=== PATIENT | female | born 1940 | race Caucasian/White ===

== ENCOUNTER → 2017-10-12 12:23 | Outpatient (CLI) | payer MEDICARE, SELFPAY ==
--- NOTE | 2017-10-12 | DI.MRI.S_ITS ---
PROCEDURE: MR KNEE RT WO CON INDICATIONS: PRIMARY OSTEOARTHRITIS OF RIGHT KNEE TECHNIQUE: Noncontrast sagittal PD fast spin echo and T2 fast spin echo with fat saturation, sagittal 3-D FLASH with fat saturation; coronal T1 spin echo and PD fast spin echo with fat saturation, and axial PD fast spin echo with fat saturation through the knee. COMPARISON: None. FINDINGS: Image quality: Excellent. Menisci: There is medial extrusion of the medial meniscus. Amorphous high signal intensity traverses the medial meniscal body, demonstrating superior and inferior articular surface extension. Lateral meniscus is intact. Cruciate ligaments: The anterior and posterior cruciate ligaments appear intact. Medial structures: The medial collateral ligament appears intact. The posterior oblique ligament, semimembranosus tendon insertions, oblique popliteal ligament, and meniscocapsular junction appear intact. Visualized portions of the pes anserinus tendons appear normal. Moderate T2 signal elevation at the tibial insertion site of the semimembranosus tendon. No abnormal bursal fluid. Lateral structures: The lateral collateral ligament, long and short heads of the biceps femoris tendon appear intact. The popliteus tendon appears normal; the popliteofibular ligament appears intact. The posterosuperior and anteroinferior popliteomeniscal fascicles appear intact. The arcuate and fabellofibular ligaments appear intact, on either side of the lateral inferior geniculate artery. Iliotibial band appears normal. Anterior structures: The quadriceps and patellar tendons appear intact. There is mild lateral patellar subluxation. No femoral trochlear dysplasia or ventral trochlear prominence. Mild edema in the superolateral aspect of the infrapatellar fat pad. Bones and cartilage: No displaced fracture. Moderate ill-defined T2 signal elevation within the weightbearing aspects of the medial femoral condyle and medial tibial plateau. Within the medial femoral condyle weightbearing aspect, there is a focal region of linear subchondral low T1 signal intensity measuring roughly 9 mm anteroposterior by 5 mm transverse. Within the mid/posterior weight-bearing aspect of the lateral femoral condyle, there is a linear subchondral region of low T1 signal intensity measuring 6 mm anteroposterior by 5 mm transverse. There is severe diffuse articular cartilage loss overlying the weightbearing aspects of the medial femoral condyle and medial tibial plateau. Moderate articular cartilage loss overlies the mid and inferior aspects of the lateral patellar facet. Joint space: There is a small knee joint effusion. No Siegel's cyst. Normal appearing synovial plicae are incidentally noted. IMPRESSION: 1. 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 Small regions of osteochondral injury could produce a similar appearance. There is moderate surrounding degenerative versus reactive marrow edema within the medial lateral femoral condyles, as well as the medial tibial plateau. 2. Medial meniscal tearing. 3. Small knee joint effusion. 4. 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 5. Partial-thickness tearing of the semimembranosus at the tibial insertion site. Dictated by: Zaire Frausto M.D. on 10/12/2017 at 13:38 Approved by: Zaire Frausto M.D. on 10/12/2017 at 13:59
== END ==
PROVIDERS: PCP Family Medicine; Visit Provider Orthopaedic Surgery
DX: M17.11 Unilateral primary osteoarthritis, right knee (principal); S83.241A Other tear of medial meniscus, current injury, right knee, initial encounter; M25.461 Effusion, right knee
CPT/HCPCS: 73721

== ENCOUNTER → 2017-12-23 13:24 | Outpatient (CLI) | payer MEDICARE, SELFPAY ==
[2017-12-23 13:35] LABS: Bacteria Urine None Seen
[2017-12-23 14:34] LABS: Appearance Urine UA CLEAR; Bilirubin Urine UA NEGATIVE (NEGATIVE); Color Urine UA YELLOW; Glucose Urine UA NEGATIVE (Normal); Ketones Urine UA NEGATIVE (NEGATIVE); Leukocyte Esterase Urine UA TRACE (NEGATIVE); Nitrite Urine UA Negative (Negative); Occult Blood Urine UA TRACE-LYSED (Negative); Protein Urine UA NEGATIVE (Negative); Urobilinogen Urine UA 0.2 E.U./dL (0.2)
[2017-12-23 14:36] LABS: Add Manual Diff / Slide Review NO; Basophils Percent Auto 0.6 % (0-2); Eosinophils Percent Auto 8.3 % (2-4); Hematocrit 39.9 % (36-46); Hemoglobin 13.4 g/dL (12.0-16.0); Lymphocytes Percent Auto 33.1 % (25-40); Mean Corpuscular HGB Conc 33.5 % (30-36); Mean Corpuscular Hemoglobin 31.4 PG (26-34); Mean Corpuscular Volume 93.6 fL (80-100); Monocytes Percent Auto 9.9 % (3-14); Neutrophils Absolute Auto 4000 /uL (3000-5900); Neutrophils Percent Auto 48.1 % (50-75); Platelet Count 274 X10^3/uL (150-400); Red Blood Cell Count 4.26 X10^6/uL (4.0-5.2); Red Cell Distribution Width 12.9 % (11.6-14.8); White Blood Cell Count 8.3 X10^3/uL (4.5-11.0)
[2017-12-23 14:51] LABS: Hemoglobin A1C% w Est Avg Glu 5.6 % (4.0-6.0)
[2017-12-23 14:52] LABS: RBC Urine 1-5/HPF (0-5/HPF)
[2017-12-23 14:53] LABS: Culture Indicated Urine Specimen Cultured; Renal Epithelial Cells Urine 0-1/HPF; Squamous Epithelial Cell Urine 1-5 /HPF; Transitional Epi Cells Urine 0-1/HPF (0-5/HPF); WBC Urine 1-5/HPF (0-5/HPF)
[2017-12-23 14:56] LABS: BUN Creatinine Ratio 18.6 (6-22); Blood Urea Nitrogen 26 mg/dL (7-17); Calcium 9.7 mg/dL (8.4-10.2); Carbon Dioxide 28 mmol/L (22-32); Chloride 104 mmol/L (98-107); Estimated Glomerular Filt Rate 36.6 mL/min (>60); Glucose 129 mg/dL (80-110); HEMOLYSIS < 15 (0-50); Potassium 4.5 mmol/L (3.4-5.1); Sodium 145 mmol/L (137-145)
== END ==
PROVIDERS: PCP Internal Medicine; Visit Provider Orthopaedic Surgery
DX: Z01.818 Encounter for other preprocedural examination (principal); Z01.812 Encounter for preprocedural laboratory examination; N39.9 Disorder of urinary system, unspecified; R73.09 Other abnormal glucose
CPT/HCPCS: 36415; 80048; 81001; 83036; 85025; 87086; 93005

== ENCOUNTER 2018-01-26 08:10 | Day surgery (SDC) | payer MEDICARE, SELFPAY ==
[2018-01-12 12:59] VITALS: BMI 37.8
[2018-01-26] VITALS (14 sets, daily range): BP systolic 119–151; BP diastolic 50–89; PULSE 57–71; RESP 10–18; TEMP 35.7–36.9; O2SAT 94–100; BMI 37.8; BMI 39.2
[2018-01-26] MEDS: ACETAMINOPHEN 325 MG TABLET 975 MG PO ×3 (09:20→21:00)
[2018-01-26] MEDS: PREGABALIN 75 MG CAPSULE PO (09:20)
[2018-01-26] MEDS: CELECOXIB 200 MG CAPSULE PO (09:20)
[2018-01-26] MEDS: VANCOMYCIN 1,000 MG/200 ML FROZ.PIGGY 200 MG IV (09:21)
[2018-01-26] MEDS: LACTATED RINGERS 1,000 ML 42 ML IV (10:30)
--- NOTE | 2018-01-26 10:42 | PM.PREOP ---
Pre-operative Note Interval Note Pre-op Check: Yes History & Physical Reviewed by Physician and Yes Exam Performed Changes: No
--- NOTE | 2018-01-26 10:44 | PM.OP.1 ---
Operative Date/Time/Diagnoses Date of procedure: 01/26/18 Time of procedure: 10:56 Pre-op diagnosis: right knee OA Post-op diagnosis: same Procedure & Clinicians Procedure: Right total knee arthroplasty Same procedure as scheduled: Yes Indications: The patient has had progressively worsening right knee pain with radiographic changes consistent with arthritis. Non-operative management has failed and the patient has requested total knee replacement. The risks, benefits and alternatives to surgery were discussed with the patient prior to proceeding. Risks discussed included, but were not limited to, failure to relieve pain, stiffness, infection, nerve damage, deep venous thrombosis, pulmonary embolism, stroke, coma, heart attack, permanent paralysis and , as well as the potential need for eventual revision of the prosthetic. Surgeon: Kay Payne Debarker Operator: Oscar Quiñonze Anesthesia Type: Spinal, Sedation and Peripheral nerve block Operative Notes Findings: Severe right hip osteoarthritis, good stability Closure Type: primary Specimen(s): none sent Implants & Drains: Payne and Nephkumar Cabrera BCS2 4 FEMUR, 2 tibia, 35 mm patella,+10 poly Applied: drain(s) Estimated Blood Loss (mL): 250 Blood products transfused: none Tourniquet time (min): 63 Procedure in detail: The patient was seen in the pre-operative area, where the patient identified the right knee as the operative site and this was marked with my initials. The patient received pre-operative antibiotics, and was taken to the operating room and placed on the operative table in the supine position. After satisfactory anesthesia, a full fashioned garment knitter out was performed. The right leg was encircled with a tourniquet about the proximal thigh, and the leg was prepared from the toes to the tourniquet with ChloroPrep in the usual fashion and draped through sterile drapes. The leg was elevated and exsanguinated with Eschmark bandage and the tourniquet inflated to [250] mmHg pressure. The knee was approached through an approximately 18 cm incision centered over the patella and carried into the knee through a medial parapatellar arthrotomy. A portion of the medial and lateral meniscus was resected. Soft tissue was carefully mobilized around the patella the patella was measured with a caliper. Bone was resected from the patella and the patellar height was reconstituted with up an appropriate sized patellar component. A cover was then placed on the patella. A small amount of additional medial and lateral meniscus was resected. The visionare guide fit well to the distal femur. It looked like an appropriate distal femoral cut and the cut was made without difficulty. The rotation was assessed and the appropriate size femoral guide was placed on the distal femur and finishing cuts were made. There is no evidence of notching. The anterior, posterior and chamfer cuts were then made. The posterior osteophytes and soft tissues were then removed. The posterior capsule was injected with part of a mixture of 60 ml 0.25% Marcaine mixed with 20 ml Exparel for post operative pain control. The remainder of this mixture was injected into the capsule and subcutaneous tissues during cement curing. The tibia was prepared and the visionaire guide fit well to the distal tibia. The rotation was assessed. The patient was placed in extension residual medial and lateral meniscus as well as any residual bone was carefully resected. [No] additional tibia was resected. Hemostasis was achieved especially posteriorly. Additional local was injected into the posterior capsule. The extension gap was assessed and additional releases for gap balancing were performed as necessary. It was checked with the gap epitaxial reactor technician. The femoral component was trial was placed and the notch was finished. Trial tibial and femoral components were then placed and the knee placed through a range of motion. Range of motion was [0-130], with good stability throughout the range. The trials were then removed, and the tibia was finished. The bone was prepared with pulsatile lavage, and dried with a sponge. Cement was applied and the final prosthetics placed. Excess cement was removed during and after cement curing. A brief Betadine soak was performed. After confirming there was no extruded cement posteriorly, the final tibial insert was placed. The knee was copiously irrigated and the tourniquet deflated. Hemostasis was obtained with the bovie. A drain was placed and brought out superolaterally. The capsule was closed with interrupted # 1 poly suture. The subcutaneous layer was closed with barbed sutures, and the skin with a running 3-0 V-Lock suture and Surgical glue. An Aquacel Ag dressing was applied and the patient was taken to recovery having tolerated the procedure well. Complications: none Condition: stable Disposition: Acute Care Plan for aftercare: The patient will be maintained on a standard total knee replacement protocol with weight bearing as tolerated. The patient will receive aspirin and sequential compression devices for DVT prophylaxis. The patient will be discharged home when safe for the home environment.
--- NOTE | 2018-01-26 10:45 | DI.RAD.S_ITS ---
PROCEDURE: XR KNEE RT 1TO2V INDICATIONS: post op, total right knee arthroplasty. TECHNIQUE: 2 view(s) of the knee acquired. COMPARISON: [facility] [place] [facility] SAYRA Plasencia, XR BONE LENGTH SCANOGRAM, 10/12/2017, 13:34. FINDINGS: Bones: Patient is status post knee joint arthroplasty. Hardware components are in expected positions. Visualized bony structures are intact. Soft tissues: Overlying postoperative changes are noted. Expected post surgical changes within the overlying soft tissues are present with areas of soft tissue air, edema, and fluid. A surgical drainage catheter seen overlying the superior aspect of the anterior knee. No unexpected radiopaque foreign bodies are identified. IMPRESSION: Expected posterior to changes related to a total right knee arthroplasty. Dictated by: Bennie Banuelos M.D. on 01/26/2018 at 13:29 Approved by: Bennie Banuelos M.D. on 01/26/2018 at 13:30
[2018-01-26] MEDS: MIDAZOLAM 2 MG/2 ML VIAL IV (10:46)
[2018-01-26] MEDS: fentaNYL 100 MCG/2 ML INJ 50 MCG IV (10:47)
--- NOTE | 2018-01-26 10:52 | SUR.OPER ---
Supine on padded OR bed. Pillow under head, arms secured on padded armboards <90 degree abduction. Safety belt across torso. Non-operative leg secured with tape over blanket over lower leg. Operative leg secured in DeMayo/Bennett positioner. Foam padded brace at thigh of operative leg.
--- NOTE | 2018-01-26 11:02 | SUR.PREOP ---
Block start time 1052[] . Monitoring initiated and maintained throughout procedure. Oxygen and medications given per anesthesiologist instructions. Patient remained stable throughout procedure, no adverse reactions noted. Block end time [1100].
[2018-01-26] MEDS: CEFAZOLIN 2 GM/100 ML FROZ.PIGGY IV ×2 (11:05→19:07)
[2018-01-26] MEDS: BUPIVACAINE 0.25% W/ EPI VIAL 60 ML INJ (11:45)
[2018-01-26] MEDS: BUPIVACAINE LIPOSOME 266 MG/20 ML VIAL INJ (11:46)
--- NOTE | 2018-01-26 13:11 | PC.NURSE ---
Day shift: Pt not on AC unit at this time.
--- NOTE | 2018-01-26 14:20 | PC.NURSE ---
Admit Pt arrived to floor 1400, oriented to room and POC, IVF started. Hemovac clamped, call to PACU about time to unclamp, no answer. Pt denies pain. No fall hx, Reviewed allergies with Pt. Spo2 93% RA, enc DB & C while awake. SCDs in place.
[2018-01-26] MEDS: LACTATED RINGERS 1,000 ML 125 ML IV ×2 (14:49→22:52)
[2018-01-26] MEDS: OXYCODONE IR 5 MG TABLET PO ×2 (17:25→21:01)
--- NOTE | 2018-01-26 17:41 | PT.IIE ---
Current Diagnoses Unilateral primary osteoarthritis, right knee (01/26/18) Surgery Performed Operation Date: 01/26/18 10:45 Actual Procedures p Total Knee Arthroplasty(Right) - Kay Payne MD Surgical History (Last Updated 01/12/18 @ 14:00 by Lexii Aquino, RN) Hx of tonsillectomy (Acute) Status post bilateral cataract extraction (Acute) Status post biopsy of kidney (Acute) Medical History (Last Reviewed 01/26/18 @ 17:27 by Manoj Sandhu, PT, [place]) Arthritis (Acute) Easy bruisability (Acute) GERD (gastroesophageal reflux disease) (Acute) Glaucoma (Acute) Hyperglycemia, drug-induced (Acute) Kidney failure (Acute) Physical Therapy Inpatient Evaluation/Re-Eval M1 PT/OT-IP Prior Functional Status Start: 01/26/18 17:27 Freq: NEEDED Status: Active Protocol: Document 01/26/18 17:27 EA (Rec: 01/26/18 17:41 EA [id number]) Medical Review Prior Functional Status Medical History Reviewed Yes Diet/Fluid Consistency Regular Communication Normal Mobility and Gait bale to ambulate with unlimited distance with pain to right knee with no use of walking device. Activities of Daily Living and IADL's Indep in all ADL's Social History Household Members spouse Living Arrangements House Number of Floors (Floors) Two Floors Number of Stairs To Enter/Railing? 3 step to get in with left rails going up Home Environment Standard Height Toilet Home Equipment Front Wheel Walker Straight Cane Employment Status Retired M2 PT-IP Current Condition Start: 01/26/18 17:27 Freq: NEEDED Status: Active Protocol: Document 01/26/18 17:27 EA (Rec: 01/26/18 17:41 EA [id number]) Physical Therapy Current Condition Current Condition Evaluation Date 01/26/18 Onset Date s/p R TKA Weight Bearing Status Weight Bearing Status Weight Bear as Tolerated M3 PT-IP Subjective Start: 01/26/18 17:27 Freq: NEEDED Status: Active Protocol: Document 01/26/18 17:27 EA (Rec: 01/26/18 17:41 EA [id number]) Subjective Physical Therapy Visit Type Type Initial Evaluation Visit Start Time 16:50 Visit Stop Time 17:30 Total Visit Minutes 40 Physical Therapy Visit Comments Patient Comments Patient would like to use bed side commode and mobilize Patient Goals Patient would like to be indep in all transfers and mobility prior to discharge Therapy Pain Assessment Pain When Pain Assessed At Rest Pain Present Pain Present Pain Reported Location Right Knee Intensity 2 Scale Used Numeric (1 - 10) Description Acute M4 PT-IP Mobility and Gait Start: 01/26/18 17:27 Freq: NEEDED Status: Active Protocol: Document 01/26/18 17:27 EA (Rec: 01/26/18 17:41 EA [id number]) PT-Bed Mobility Assessment Supine to Sit Supine to Sit Standby Assistance Sit to Supine Sit to Supine Standby Assistance Scooting Scooting to Edge of Bed Minimal Assistance PT-Transfer Assessment Sit to and From Stand Sit to and from Stand Minimal Assistance Equipment Transfer Assistive Device Gait Belt Front Wheeled Walker Transfers Transfer Destination Bed Chair Bedside Commode Transfer Technique Stepping transfers Transfer Ability Level of Assist Contact Guard Assistance Comments Mobility Comments Patient requires cues during sit to stand to use arm push in bed or chair Gait Assessment Gait Gait Assistance Required: Contact Guard Assist Distance (Feet) 6 Able to Maintain Weight Bearing Status Yes During Gait Assistive Devices Assistive Device Front Wheeled Walker Gait Deviations General Gait Pattern Antalgic Factors Limiting Gait Function Factors Limiting Gait Function Decreased Sensation Decreased Strength Pain PT-Balance Assessment Sitting Balance and Reactions Static Sitting Balance Ability Normal Dynamic Sitting Balance Ability Good Standing Balance and Reactions Static Standing Balance Ability Good Dynamic Standing Balance Ability Fair M5 PT-IP Objective Assessments Start: 01/26/18 17:27 Freq: NEEDED Status: Active Protocol: Document 01/26/18 17:27 EA (Rec: 01/26/18 17:41 EA [id number]) Orientation Orientation/Cognition Level of Alertness Alert Orientation Name Age Month Date Year Day of Week Place Language Function Ability No Deficits Noted Safety Awareness Understands Safety Issues Memory Description No Deficits Noted Gross Range of Motion Upper Extremity ROM Assessment Within Functional Limits Lower Extremity ROM Assessment Right Impaired Impairments Not assessed but WFL with spontaneous movement Strength Upper Extremity Strength Assessment Within Functional Limits Lower Extremity Strength Assessment Right Impaired Knee with at least 3/5 during spontaneous movement Coordination Assessment Gross Coordination Gross Coordination WNL Assessment Finger to Nose Test Normal Performance Pronation/Supination Test Normal Performance Sensation Assessment Sensation Gross Sensation WNL Light Touch Intact Proprioception (Position) Intact M6 PT-IP Treatment Start: 01/26/18 17:27 Freq: NEEDED Status: Active Protocol: Document 01/26/18 17:27 EA (Rec: 01/26/18 17:41 EA [id number]) Physical Therapy Treatment Exercises Exercises Ankle Pumps Quad Sets Heel Slides Straight Leg Raises Short Arc Quads Passive Knee Extension Hang Seated Knee Flexion/Extension Education Education Provided Precautions Weight Bearing Status Post-Op Packet Safety M7 PT-IP Assessment and Plan Start: 01/26/18 17:27 Freq: NEEDED Status: Active Protocol: Document 01/26/18 17:27 EA (Rec: 01/26/18 17:41 EA [id number]) PT Summary Assessment and Plan Potential Rehabilitation Potential Good Status of Condition at Evaluation Stable Summary Impairments Pain ROM Strength Balance Bed Mobility Transfers Gait Activity Tolerance Assessment Summary Pt exhibits difficulty with transfers and standing mobility due to decreased activity tolerance, pain to right knee, weakness and slight dynamic standing balance issues. Patient requires assistance to all transfers and mobility at this time for safety. Patient would benefit with skilled PT to reach functional independence goals prior to discharge. Pt demonstrates good potential for recovery. Goals Bed Mobility Goal Independent Transfer Goal Independent Gait Goal Independent Gait Distance 50 ft Other Goals stairs with rails to left x 3 steps Days to Meet Goals 2 Frequency of Treatment Frequency Of Treatment Twice a Day Treatment Plan Physical Therapy Treatment Plan Bed Mobility Training Transfer Training Gait Training Therapeutic Exercise Balance Retraining Post Op Education Discharge Planning Recommendations To Nursing Amount of Assist Needed 1 Person Assist Discharge Recommendations PT Discharge Recommendations Home with 11/10 Assist Other Discharge Recommendations Out patient PT
[2018-01-26] MEDS: IBUPROFEN 600 MG TABLET PO (19:04)
[2018-01-26] MEDS: TRAVOPROST OPHTH DROPS 1 DROPS EYE-BOTH (20:59)
[2018-01-26] MEDS: DORZOLAMIDE 2% OPHTH 10 ML 1 DROPS EYE-BOTH (20:59)
[2018-01-26] MEDS: TIMOLOL 0.5% OPHTH 1 DROPS EYE-BOTH (21:00)
[2018-01-26] MEDS: METOPROLOL IR 50 MG TABLET PO (21:01)
[2018-01-26] MEDS: DOCUSATE 100 MG CAPSULE PO (21:01)
[2018-01-26] MEDS: ASPIRIN EC 81 MG TABLET PO (21:01)
[2018-01-27] MEDS: OXYCODONE IR 5 MG TABLET PO ×2 (00:54→12:43)
[2018-01-27 01:10] VITALS: O2SAT 99
[2018-01-27 01:11] VITALS: BP 117/64; PULSE 64; RESP 18; TEMP 36.3
[2018-01-27] MEDS: CEFAZOLIN 2 GM/100 ML FROZ.PIGGY IV (03:09)
[2018-01-27 04:09] VITALS: BP 155/68; PULSE 69
--- NOTE | 2018-01-27 04:18 | PC.NURSE ---
pt had a syncopal episode 0400 after getting up to the BR. She was sitting on her bed and ready to lay back down and suddenly loss consciousness for about 5 sec, she hit the back of her head on the bed rail. She does not remember hitting her head. does not complain of any pain to her head. BP was 155/68 P: 69. IVF infusing. She had an emesis of 100cc. HV intact. pain controlled w/5mg tab percolone. call light in reach, bed alarm active. notified refractive surgeon doc. no new orders.
[2018-01-27] MEDS: ONDANSETRON 4 MG/2 ML INJ IV (04:44)
[2018-01-27] MEDS: IBUPROFEN 600 MG TABLET PO ×2 (04:48→12:39)
[2018-01-27] MEDS: PANTOPRAZOLE 20 MG TABLET PO (05:41)
[2018-01-27 06:14] VITALS: BP 124/58; PULSE 63; RESP 18; TEMP 36.7; O2SAT 96
[2018-01-27] MEDS: LACTATED RINGERS 1,000 ML 125 ML IV (07:35)
[2018-01-27 07:37] LABS: Hematocrit 33.4 % (36-46); Hemoglobin 11.2 g/dL (12.0-16.0)
--- NOTE | 2018-01-27 08:32 | PM.DS.1 ---
History of Present Illness Date Patient Seen: 01/27/18 Time Patient Seen: 08:32 Chief complaint: [id number] Narrative: Hospital day 2, postop day 1 following right total knee arthroplasty by Dr. Payne. Patient remained stable. She did have episode of syncope at 0400 this morning after getting up to the bathroom and while she was sitting on the edge of the bed. She did fall backwards hitting her head on the plastic side rail. Brief LOC. Did have vomiting 3 times after that but none since then. Denies any dizziness, headache, numbness. Pain control with oxycodone. Patient states she does have upset stomach when taking medications and has vomited after taking vitamins. H&H 11.2/33.4. Discharge Providers Date of admission: 01/26/18 08:10 Primary care physician: Gerald Hines Consults: 01/12/18 13:57 Consult to Pastoral Services Routine Comment: RT TKA 01/26/18 01/26/18 07:46 Consult to Anesthesiology Routine Comment: Consulting Provider: Anesthesiologist Reason for consultation: Regional block for post operative pain control 01/26/18 14:09 Consult to Discharge Planning Routine Comment: Consult to Physical Therapy Evaluate & Treat Comment: Physician Instructions: postop TKA protocol Consult to Respiratory Therapy Evaluate & Treat Comment: Physician Instructions: Evaluate and treat 01/26/18 15:13 Consult to Pastoral Services Routine Comment: requested pastoral consult Discharge provider: Mario Long PA-C Discharge Date: 01/27/18 Summary Discharge Diagnosis: Status post right total knee arthroplasty Hospital Course: See above-noted note. Status at Discharge Overall status at discharge: patient is progressing back to baseline Time Spent with Patient Less than 30 minutes Exam Vital Signs (past 8 hours): - 01/27/18 01:10 01/27/18 01:11 01/27/18 04:09 Temperature 97.3 F L Pulse Rate 64 69 Respiratory Rate 18 Blood Pressure 117/64 155/68 H Pulse Oximetry 99 01/27/18 06:14 Temperature 98.0 F Pulse Rate 63 Respiratory Rate 18 Blood Pressure 124/58 L Pulse Oximetry 96 Oxygen Delivery Method Room Air Oxygen Flow Rate 0 Narrative Exam Narrative: Alert, oriented no acute distress resting in bed. Legs. Oli wrap an Aquacel dressing to right knee is dry without drainage or inflammation. No calf pain or swelling. Pulses symmetrical. Patient able fire her quad on the right. Objective Labs Result Diagrams: 01/27/18 07:17 Labs: Laboratory Results - last 24 hr 01/27/18 07:17 Hgb 11.2 L Hct 33.4 L Discharge Plan Discharge Plan Patient Disposition: Home Discharge comment: Patient is a [facility] patient. She does have pain medication at home. Discharged home after cleared by physical therapy today. Discharge Med Rec/Prescriptions Prescriptions: Continue losartan 50 mg Tablet 25 mg PO DAILY RF: 0 furosemide 40 mg Tablet 40 mg PO DAILY RF: 0 cetirizine [Aller-Tim] 10 mg Tablet 10 mg PO DAILY RF: 0 travoprost [Travatan Z] 0.004 % Drops 1 drp EYE-BOTH BEDTIME RF: 0 aspirin 81 mg Tablet,Delayed Release (Dr/Ec) 81 mg PO DAILY RF: 0 metoprolol tartrate 50 mg Tablet 50 mg PO BID RF: 0 omeprazole 20 mg Capsule,Delayed Release(Dr/Ec) 20 mg PO DAILY RF: 0 timolol maleate 0.5 % Drops 1 drp EYE-BOTH BID RF: 0 dorzolamide 2 % Drops 1 drp EYE-BOTH BID RF: 0 Provider Discharge Instructions Diet: Diet as Tolerated Activity: Ambulate as tolerated. Begin physical therapy for range of motion of knee. Skin/Wound/Dressing Care Report to your healthcare provider any signs of infection, such as:: chills, fever, night sweats, increased pain and unusual drainage Dressing: Keep Aquacel dressing in place until postop visit. Visit Report/Discharge Packet Instructions: DI for Knee Replacement Discharge Data Primary Care Provider: Gerald Hines Attending Provider: Kay Payne Admit Date/Time: 01/26/18 08:10 Quality VTE Deep Vein Thrombosis/Pulmonary Embolism Present on Admission: No
--- NOTE | 2018-01-27 08:35 | PT.IPTN ---
Current Diagnoses Unilateral primary osteoarthritis, right knee (01/26/18) Surgery Performed Operation Date: 01/26/18 10:45 Actual Procedures p Total Knee Arthroplasty(Right) - Kay Payne MD Physical Therapy Treatment Note M2 PT-IP Current Condition Start: 01/26/18 17:27 Freq: NEEDED Status: Active Protocol: Document 01/26/18 17:27 EA (Rec: 01/26/18 17:41 EA [id number]) Physical Therapy Current Condition Current Condition Evaluation Date 01/26/18 Onset Date s/p R TKA Weight Bearing Status Weight Bearing Status Weight Bear as Tolerated M3 PT-IP Subjective Start: 01/26/18 17:27 Freq: NEEDED Status: Active Protocol: Document 01/27/18 08:35 AB (Rec: 01/27/18 09:46 AB [id number]) Subjective Physical Therapy Visit Type Type Treatment Note Visit Start Time 08:35 Visit Stop Time 09:35 Total Visit Minutes 60 Number of DYNAMITE PACKING MACHINE FEEDER Visits 60 Physical Therapy Visit Comments Patient Comments pt requested to use the toilet Therapy Pain Assessment Pain When Pain Assessed During Mobility Pain Present Pain Present Pain Reported Location Right Knee Intensity 6 Scale Used Numeric (1 - 10) Pain Management Techniques Apply Cold Re-positioning Timing of Activity with Medications M4 PT-IP Mobility and Gait Start: 01/26/18 17:27 Freq: NEEDED Status: Active Protocol: Document 01/27/18 08:35 AB (Rec: 01/27/18 09:46 AB [id number]) PT-Bed Mobility Assessment Supine to Sit Supine to Sit Standby Assistance PT-Transfer Assessment Sit to and From Stand Sit to and from Stand Contact Guard Assistance Equipment Transfer Assistive Device Gait Belt Front Wheeled Walker Orthotic/Prosthetic Devices or Brace: No Transfers Transfer Destination Toilet Transfer Technique pt ambulated to the toilet using FWW Transfer Ability Level of Assist Contact Guard Assistance Comments Mobility Comments nurse stated that pt has orthostatic episode last night . BP monitored. BP in supine prior to mobilization: 125/60 . pt completed supinet to sit SBA. BP in sittin/69. pt completed sit to stand CGA with cues for techniques. pt performed 2 reps. Pt without c/o lightheadedness/ nausea. pt ambulated to the toilet using FWW CGA. required CGA to min A for sit to stand from the toilet using grab bars. pt ambulated towards the sink using FWW CGA and was able to maintain standing SBA to CGA while completing handwashing. Pt ambulated to the chair. c/o slight nausea. BP checked: 130/59. pt agreed to do further ambulation. Pt required 2 attempts for sit to stand and required cues for technique to complete and CGA. Pt ambulated in room ~ 25 ft and unable to ambulate further due to c/o nausea. pt agreed to stay up on chair. BP checked 125/58. positioned pt on chair. educated on HEP , goals and equipement needs. recommending FWW at this time for safety. pt refused stair climbing this morning but agreed to do it in afternoon session. BP checked again: 125/56. ice pack provided. call light and table placed within reach. Gait Assessment Gait Gait Assistance Required: Contact Guard Assist Distance (Feet) 25 Able to Maintain Weight Bearing Status Yes During Gait Assistive Devices Assistive Device Gait Belt Front Wheeled Walker Orthotic/Prosthetic Devices or Brace: No Gait Deviations General Gait Pattern Antalgic Decreased Stride Length Decreased Feet Clearance Factors Limiting Gait Function Factors Limiting Gait Function Decreased Activity Tolerance Decreased Strength Limited Range of Motion Pain Poor Balance M5 PT-IP Objective Assessments Start: 01/26/18 17:27 Freq: NEEDED Status: Active Protocol: Document 01/26/18 17:27 EA (Rec: 01/26/18 17:41 EA [id number]) Orientation Orientation/Cognition Level of Alertness Alert Orientation Name Age Month Date Year Day of Week Place Language Function Ability No Deficits Noted Safety Awareness Understands Safety Issues Memory Description No Deficits Noted Gross Range of Motion Upper Extremity ROM Assessment Within Functional Limits Lower Extremity ROM Assessment Right Impaired Impairments Not assessed but WFL with spontaneous movement Strength Upper Extremity Strength Assessment Within Functional Limits Lower Extremity Strength Assessment Right Impaired Knee with at least 3/5 during spontaneus movement Coordination Assessment Gross Coordination Gross Coordination WNL Assessment Finger to Nose Test Normal Performance Pronation/Supination Test Normal Performance Sensation Assessment Sensation Gross Sensation WNL Light Touch Intact Proprioception (Position) Intact M6 PT-IP Treatment Start: 01/26/18 17:27 Freq: NEEDED Status: Active Protocol: Document 01/27/18 08:35 AB (Rec: 01/27/18 09:46 AB [id number]) Physical Therapy Treatment Exercises Exercises Heel Slides Education Education Provided Precautions Weight Bearing Status Post-Op Packet Safety M7 PT-IP Assessment and Plan Start: 01/26/18 17:27 Freq: NEEDED Status: Active Protocol: Document 01/27/18 08:35 AB (Rec: 01/27/18 09:46 AB [id number]) PT Summary Assessment and Plan Potential Rehabilitation Potential Good Summary Impairments Pain ROM Strength Balance Bed Mobility Transfers Gait Activity Tolerance Assessment Summary pt requires SBA to CGA with mobility but unable to tolerate much due to c/o nausea. pt plans to go home with spouse to assist her. stair climbing will be conducted prior to d/c. pt may go home when safe and medically stable. Goals Bed Mobility Goal Independent Transfer Goal Independent Gait Goal Independent Gait Distance 50 ft Other Goals stairs with rails to left x 3 steps Days to Meet Goals 2 Frequency of Treatment Frequency Of Treatment Twice a Day Treatment Plan Physical Therapy Treatment Plan Bed Mobility Training Transfer Training Gait Training Therapeutic Exercise Balance Retraining Post Op Education Discharge Planning Recommendations To Nursing Amount of Assist Needed 1 Person Assist Discharge Recommendations PT Discharge Recommendations Home with 11/10 Assist Other Discharge Recommendations Out patient PT
[2018-01-27] MEDS: ACETAMINOPHEN 325 MG TABLET 975 MG PO ×2 (08:44→14:59)
[2018-01-27] MEDS: ONDANSETRON 4 MG ODT PO (09:48)
[2018-01-27] MEDS: TIMOLOL 0.5% OPHTH 1 DROPS EYE-BOTH (09:49)
[2018-01-27] MEDS: DORZOLAMIDE 2% OPHTH 10 ML 1 DROPS EYE-BOTH (09:50)
[2018-01-27] MEDS: LOSARTAN 25 MG TABLET PO (09:52)
[2018-01-27] MEDS: ASPIRIN EC 81 MG TABLET PO (09:52)
[2018-01-27] MEDS: DOCUSATE 100 MG CAPSULE PO (09:52)
[2018-01-27] MEDS: METOPROLOL IR 50 MG TABLET PO (09:52)
[2018-01-27] MEDS: FUROSEMIDE 40 MG TABLET PO (09:52)
--- NOTE | 2018-01-27 11:58 | CM.DANOTE ---
Discharge Planning/Care Management DCP/Discharge Patient to discharge home today following PT clearance. Met with patient and daughter: notified of CM team role and family understood. Patient is agreeable to discharge but stated she did not get to work with PT as much due to vomiting. She understands she needs to work with PT successfully in order to have a safe discharge. Plan: Patient to discharge home when medically stable with supportive spouse and family. CM Discharge Assessment Start: 01/27/18 11:57 Freq: Status: Active Protocol: Document 01/27/18 11:57 (Rec: 01/27/18 11:58 [id number]) Discharge Planning Assessment Assigned Manager Deli LAMINE Gamboa Advance Directives? Yes Advance Directives on File No History Provided By Patient Family Member Medical Record Has Patient been admitted in last 30 No days? Prior Living Arrangements House Household Members spouse Type of transporation used prior to Drives own vehicle admit Independent with ADL's Yes Is patient alert and oriented? Yes Caregiver for Another No Barriers to Discharge No Discharge Plan Home Referrals Initiated None needed Whiteboard Updated in Patient Room with Yes name and ext. # of Manager Deli Review Status In Process Please Provide Date Initial DC 01/27/18 Assessment Was Performed Next Review Type Continued Stay Review Pre-Anesthesia Assessment Start: 01/12/18 12:59 Freq: Status: Active Protocol: Document 01/12/18 12:59 CAB (Rec: 01/12/18 13:39 CAB [id number]) Pre-Anesthesia Assessment Patient Also Known As (LYNDSAY) Bebe Patient Information Reviewed Via Phone Assessment Assessment Completed With Patient Lab Results EKG Comment Labs/EKG at 12/23/17, reviewed GFR/Creatinine w/Dr. Mars. Primary Care Provider Gerald Hines Seen Specialist in Last 12 Months Yes Specialist Seen Addictions Therapist Orthopedist Comment Nephrology note 11/15/17 to med records to be scanned Primary Language Malagasy Buyer Planner Required No Height 162.56 cm Weight 99.79 kg Body Mass Index (BMI) 37.8 Hearing Ability Normal Visual Assist Magnifying Glass Dentition Type Teeth, Natural Present Barriers to Learning None Hx Anesthesia Reactions Yes: Post-op vomiting Hx Family Anesthesia Reaction No Hx Malignant Hyperthermia No Hx Blood Transfusions No Anesthesia Review Requested No Tobacco Dipper No alcohol intake never Smoking Status Never smoker Substance Use Type does not use Pain Present Pain Reported Musculoskeletal Symptoms Abnormal Gait Difficulty Walking Joint Pain History of Falling (Recent or History of No ) Patient is completely paralyzed or No completely immobile Mental Status Oriented to own ability Is patient on oxygen? No Does patient have GALICIA/SOB No Hx Sleep Apnea No Suspected Sleep Apnea No Currently Taking a Beta Luca Yes: Metoprolol Can You Climb a Flight of Stairs Without Yes SOB Hx Chest Pain No Hx SOB No Hx Syncope or Dizziness No Anti-Coagulant Therapy No Has a C Java Developer No Cardiac Testing No Hx Pacemaker/ICD No Pacemaker Rep Required? No Cardiac Clearance Received Not Applicable Diet Type At Home Regular dysphagia No Bladder Pattern Incontinent, Stress Urgency Urinary Catheter Present No Hx Urinary Self Catheterization No Diabetes Yes Patient No Lactating No Hx Drug Resistant Organism No Presence of External or Internal Medical No Devices Have you traveled outside the [facility] in the last 30 days? Marital Status Lives With spouse Prior Living Arrangements House Number of Floors (Floors) Two Floors Number of Stairs To Enter/Railing? 3 stairs, railing Support System Child/Children Spouse Does the Patient Have Assistance After Yes Surgery Patient Discharge Plan Description Return Home Comment Pt advised same day or 1 day length of stay per surgeon's office Feels Safe in Current Environment Yes Been Physically Hurt or Threatened By a No Person in Current Environment Do you have thoughts of harming yourself None or others? Are you currently considering suicide? No Do you have a plan to hurt yourself or No Plan others? Do You Have Any Spiritual Beliefs That No May Affect Your HC Choices? Do You Have Any Cultural Practices That No May Affect Your HC Choices? Spiritual Referral In-House Warp Trucker Who Can We Speak to About Patient's Care Family, friends Identifying Code for Release of Patient Declines to issue Information Health Care Proxy/Next of Kin Robb () Health Care Proxy Phone Number Robb: [phone] cell:[phone] Emergency Contact Name Robb () Emergency Contact Phone Number Robb: [phone] cell: Advance Directives? Yes Advance Directives on File No Requested Patient Bring Advanced Yes Directives DOS PAC Instructions Do not shave/clip surgical site Durable medical equipment Medications to take/avoid Nasal antibiotic No ETOH/petroleum product on skin DOS NPO Post-op transportation Pre-surgical wash Sturdy shoes/comfortable clothes Do not bring valuables and remove jewelry
--- NOTE | 2018-01-27 13:09 | PC.NURSE ---
Day shift: Removed marisel-vac per MD orders. Pt tolerated it well. Approx 30ml serosang present. Site covered w/ 2x2 and tegaderm.
--- NOTE | 2018-01-27 13:15 | PT.IPTN ---
Current Diagnoses Unilateral primary osteoarthritis, right knee (01/26/18) Surgery Performed Operation Date: 01/26/18 10:45 Actual Procedures p Total Knee Arthroplasty(Right) - Kay Payne MD Physical Therapy Treatment Note M2 PT-IP Current Condition Start: 01/26/18 17:27 Freq: NEEDED Status: Active Protocol: Document 01/26/18 17:27 EA (Rec: 01/26/18 17:41 EA [id number]) Physical Therapy Current Condition Current Condition Evaluation Date 01/26/18 Onset Date s/p R TKA Weight Bearing Status Weight Bearing Status Weight Bear as Tolerated M3 PT-IP Subjective Start: 01/26/18 17:27 Freq: NEEDED Status: Active Protocol: Document 01/27/18 13:15 AB (Rec: 01/27/18 14:48 AB [id number]) Subjective Physical Therapy Visit Type Type Treatment Note Visit Start Time 13:15 Visit Stop Time 13:55 Total Visit Minutes 40 Number of PIPE FITTER SOFT COPPER Visits 0 Therapy Pain Assessment Pain When Pain Assessed During Mobility Pain Present Pain Present Pain Reported Location Right Knee Intensity 6 Scale Used Numeric (1 - 10) Description With Movement Pain Management Techniques Apply Cold Re-positioning Timing of Activity with Medications M4 PT-IP Mobility and Gait Start: 01/26/18 17:27 Freq: NEEDED Status: Active Protocol: Document 01/27/18 13:15 AB (Rec: 01/27/18 14:48 AB [id number]) PT-Bed Mobility Assessment Sit to Supine Sit to Supine Standby Assistance Scooting Scooting to Edge of Bed Standby Assistance PT-Transfer Assessment Sit to and From Stand Sit to and from Stand Standby Assistance Equipment Transfer Assistive Device Gait Belt Front Wheeled Walker Gait Assessment Gait Gait Assistance Required: Standby Assistance Distance (Feet) 75 Able to Maintain Weight Bearing Status Yes During Gait Assistive Devices Assistive Device Gait Belt Front Wheeled Walker Orthotic/Prosthetic Devices or Brace: No Gait Deviations General Gait Pattern Antalgic Decreased Stride Length Decreased Feet Clearance Factors Limiting Gait Function Factors Limiting Gait Function Decreased Activity Tolerance Decreased Strength Limited Range of Motion Pain Poor Balance Poor Safety Awareness Stair Climbing Assessment Evaluation Level of Assist On Stairs Contact Guard Assistance Devices Stair Climbing Assistive Devices Left Railing Technique/Endurance Stair Climbing Direction Ascend and Descend Stair Climbing Technique Step to Step Number of Steps Climbed 3 Query Text: Stair Climbing Set # Repetitions (reps) 2 Comments Stair Climbing Comments pt educated on up/down steps. completed up/down 3 steps using bilateral rails CGA and then completed again using L rail ascending with spouse assisting this time providing CGA to min A. caregiver educated provided to safely assist pt and caregiver demonstrated ability to assist pt safely. M5 PT-IP Objective Assessments Start: 01/26/18 17:27 Freq: NEEDED Status: Active Protocol: Document 01/26/18 17:27 EA (Rec: 01/26/18 17:41 EA [id number]) Orientation Orientation/Cognition Level of Alertness Alert Orientation Name Age Month Date Year Day of Week Place Language Function Ability No Deficits Noted Safety Awareness Understands Safety Issues Memory Description No Deficits Noted Gross Range of Motion Upper Extremity ROM Assessment Within Functional Limits Lower Extremity ROM Assessment Right Impaired Impairments Not assessed but WFL with spontaneous movement Strength Upper Extremity Strength Assessment Within Functional Limits Lower Extremity Strength Assessment Right Impaired Knee with at least 3/5 during spontaneus movement Coordination Assessment Gross Coordination Gross Coordination WNL Assessment Finger to Nose Test Normal Performance Pronation/Supination Test Normal Performance Sensation Assessment Sensation Gross Sensation WNL Light Touch Intact Proprioception (Position) Intact M6 PT-IP Treatment Start: 01/26/18 17:27 Freq: NEEDED Status: Active Protocol: Document 01/27/18 08:35 AB (Rec: 01/27/18 09:46 AB [id number]) Physical Therapy Treatment Exercises Exercises Heel Slides Education Education Provided Precautions Weight Bearing Status Post-Op Packet Safety M7 PT-IP Assessment and Plan Start: 01/26/18 17:27 Freq: NEEDED Status: Active Protocol: Document 01/27/18 13:15 AB (Rec: 01/27/18 14:48 AB [id number]) PT Summary Assessment and Plan Potential Rehabilitation Potential Good Summary Impairments Pain ROM Strength Balance Bed Mobility Transfers Gait Activity Tolerance Assessment Summary pt doing well with mobility and plans to go home today. caregiver training completed and spouse was able to assist pt safely. Goals Bed Mobility Goal Independent Transfer Goal Independent Gait Goal Independent Gait Distance 50 ft Other Goals stairs with rails to left x 3 steps Days to Meet Goals 2 Frequency of Treatment Frequency Of Treatment Twice a Day Treatment Plan Physical Therapy Treatment Plan Bed Mobility Training Transfer Training Gait Training Therapeutic Exercise Balance Retraining Post Op Education Discharge Planning Recommendations To Nursing Amount of Assist Needed 1 Person Assist Discharge Recommendations PT Discharge Recommendations Home with 24/ Assist Other Discharge Recommendations Out patient PT
--- NOTE | 2018-01-27 15:16 | PC.NURSE ---
Day shift: Pt left unit in WC w/ her family and this handbook writer. Paperwork signed and all questions answered. Pt has all personal belongings. Pt was given Tylenol PO for her ride home just prior to leaving the AC unit.
== END 2018-01-27 15:17 | disposition home or self-care (01) ==
LOC: AC 01-27 08:36 → OR 01-27 16:11
PROVIDERS: PCP Internal Medicine; Visit Provider Orthopaedic Surgery
PROC: 0SRC0JZ Replacement of Right Knee Joint with Synthetic Substitute, Open Approach (ICD-10-PCS; CPT 27447; principal; 2018-01-26 10:45)
DX: M17.11 Unilateral primary osteoarthritis, right knee (principal); G89.18 Other acute postprocedural pain; N17.9 Acute kidney failure, unspecified; Z99.2 Dependence on renal dialysis; I10 Essential (primary) hypertension; E11.9 Type 2 diabetes mellitus without complications; D64.9 Anemia, unspecified; E66.9 Obesity, unspecified; Z68.37 Body mass index [BMI] 37.0-37.9, adult
CPT/HCPCS: 27447; 36415; 64450; 73560; 85014; 85018; 94760; 97116; 97161; 97530; 97535; C1776; C9290; J0690; J2250; J2405; J2704; J3010; J3370

== ENCOUNTER 2023-03-25 10:30 | Day surgery (SDC) | payer MEDICARE, OTHER, SELFPAY ==
[2018-01-26 14:59] VITALS: BMI 39.2
[2023-03-15 09:51] VITALS: BMI 38.4
[2023-03-22 14:00] VITALS: BP 120/39; PULSE 61; RESP 16; TEMP 36.4; O2SAT 95
[2023-03-25] VITALS (12 sets, daily range): BP systolic 126–177; BP diastolic 47–92; PULSE 59–87; RESP 15–20; TEMP 35.7–36.7; O2SAT 92–100; BMI 38.4
[2023-03-25] MEDS: VANCOMYCIN 1,000 MG/200 ML PIGGYBACK 200 MG IV (13:17)
--- NOTE | 2023-03-25 13:18 | PM.PREOP ---
Pre-operative Note Interval Note History & Physical reviewed/Exam performed by Physician: Yes Changes to H&P: No
--- NOTE | 2023-03-25 13:18 | PM.OP.1 ---
Operative Date/Time/Diagnoses Date of procedure: 03/25/23 Time of procedure: 13:25 Pre-op diagnosis: Severe left knee OA Post-op diagnosis: same Procedure & Clinicians Procedure: Left total knee arthroplasty Same procedure as scheduled: Yes Indications: The patient has had progressively worsening left knee pain with radiographic changes consistent with arthritis. Non-operative management has failed and the patient has requested total knee replacement. The risks, benefits and alternatives to surgery were discussed with the patient prior to proceeding. Risks discussed included, but were not limited to, failure to relieve pain, stiffness, infection, nerve damage, deep venous thrombosis, pulmonary embolism, stroke, coma, heart attack, permanent paralysis and , as well as the potential need for eventual revision of the prosthetic. Surgeon: Kay Payne Muffler Hand: Brayan Julien Anesthesia Type: Peripheral nerve block Operative Notes Findings: Severe left knee osteoarthritis, adequate stability Closure Type: primary Specimen(s): none sent Prosthetic devices, grafts, tissues, transplants, or devices: [facility] 2 size 5 femur, size 3 tibia, 35 by 7.5mm patella, polyethylene 9 Estimated Blood Loss (mL): 250 Blood products transfused: none Tourniquet time (min): 79 Procedure in detail: The patient was seen in the pre-operative area, where the patient identified the right knee as the operative site and this was marked with my initials. The patient received pre-operative antibiotics, and was taken to the operating room and placed on the operative table in the supine position. After satisfactory anesthesia, a inspector timers out was performed. The right leg was encircled with a tourniquet about the proximal thigh, and the leg was prepared from the toes to the tourniquet with ChloroPrep in the usual fashion and draped through sterile drapes. The leg was elevated and exsanguinated with Eschmark bandage and the tourniquet inflated to [250] mmHg pressure. The knee was approached through an approximately 18 cm incision centered over the patella and carried into the knee through a medial parapatellar arthrotomy. A portion of the medial and lateral meniscus was resected. Soft tissue was carefully mobilized around the patella the patella was measured with a caliper. Bone was resected from the patella and the patellar height was reconstituted with up an appropriate sized patellar component. A cover was then placed on the patella. A small amount of additional medial and lateral meniscus was resected. The distal femur was cut at 5?. A [+2] cut was used. It looked like an appropriate distal femoral cut and the cut was made without difficulty. An extramedullary guide was used for the tibial cut. 10 mm was resected off the least affected side.The tibia was prepared. The rotation was assessed. The patient was placed in extension residual medial and lateral meniscus as well as any residual bone was carefully resected. [No] additional tibia was resected. Hemostasis was achieved especially posteriorly. Additional local was injected into the posterior capsule. The extension gap was assessed and additional releases for gap balancing were performed as necessary. It was checked with the gap produce inspector. The femoral component was trial was placed and the notch was finished. The rotation was assessed and the appropriate size femoral guide was placed on the distal femur and finishing cuts were made. There was no evidence of notching. The anterior, posterior and chamfer cuts were then made. The posterior osteophytes and soft tissues were then removed. The posterior capsule was injected with part of a mixture of 60 ml 0.25% Marcaine mixed with 20 ml Exparel for post operative pain control. The remainder of this mixture was injected into the capsule and subcutaneous tissues during cement curing. The tibial and femoral components were then placed and the knee placed through a range of motion. Range of motion was [0-130], with good stability throughout the range. The trials were then removed, and the tibia was finished. The bone was prepared with pulsatile lavage, and dried with a sponge. Cement was applied and the final prosthetics placed. Excess cement was removed during and after cement curing. A brief Betadine soak was performed. After confirming there was no extruded cement posteriorly, the final tibial insert was placed. The knee was copiously irrigated and the tourniquet deflated. Hemostasis was obtained with the Werewolf . The capsule was closed with interrupted nonabsorbable suture. The subcutaneous layer was closed with barbed sutures, and the skin with a running 3-0 V-Lock suture and Surgical glue. A Shalom dressing was applied and the patient was taken to recovery having tolerated the procedure well. Complications: none Post-operative Condition: stable Disposition: Acute Care Plan for aftercare: The patient will be maintained on a standard total knee replacement protocol with weight bearing as tolerated. The patient will receive aspirin and sequential compression devices for DVT prophylaxis. The patient will be discharged home when safe for the home environment.
--- NOTE | 2023-03-25 13:20 | SUR.PREOP ---
Block start time [1310] . Monitoring initiated and maintained throughout procedure. Oxygen and medications given per anesthesiologist instructions. Patient remained stable throughout procedure, no adverse reactions noted. Block end time [1315].
[2023-03-25] MEDS: CEFAZOLIN 2 GM/100 ML PREMIX 100 ML IV ×2 (14:09→21:28)
[2023-03-25] MEDS: TRANEXAMIC ACID 1,000 MG VIAL 1000 MG INJ ×2 (14:15→15:40)
[2023-03-25] MEDS: BUPIVACAINE 0.25% (PF) 30 ML, EPINEPHrine 0.3 MG INJ (14:25)
[2023-03-25] MEDS: BUPIVACAINE LIPOSOME 266 MG/20 ML VIAL INJ (14:25)
--- NOTE | 2023-03-25 14:40 | SUR.OPER ---
Supine on padded OR bed. Pillow under head, arms secured on padded armboards <90 degree abduction. Safety belt across torso. Non-operative leg secured with tape over blanket over lower leg. Operative leg secured in DeMayo/Bennett/Nathe positioner. Foam padded brace at thigh of operative leg.
[2023-03-25 14:45] LABS: Add Manual Diff / Slide Review NO; Basophils Absolute Auto 100 /uL (0-100); Basophils Percent Auto 0.7 % (0-2); Eosinophils Absolute Auto 300 /uL (0-450); Eosinophils Percent Auto 3.6 % (2-4); Hemoglobin 13.4 g/dL (12.0-16.0); Lymphocytes Absolute Auto 2700 /uL (1100-4500); Mean Corpuscular HGB Conc 33.6 % (30-36); Mean Corpuscular Volume 92.2 fL (80-100); Monocytes Absolute Auto 700 /uL (0-900); Monocytes Percent Auto 7.5 % (3-14); Neutrophils Absolute Auto 5800 /uL (1500-7000); Neutrophils Percent Auto 60.2 % (50-75); Platelet Count 267 X10^3/uL (150-400); Red Blood Cell Count 4.33 X10^6/uL (4.0-5.2); Red Cell Distribution Width 13.4 % (11.6-14.8); White Blood Cell Count 9.6 X10^3/uL (4.5-11.0)
--- NOTE | 2023-03-25 15:00 | DI.RAD.S_ITS ---
PROCEDURE: XR KNEE LT 1TO2V INDICATIONS: LEFT TOTAL KNEE TECHNIQUE: 2 view(s) of the knee acquired. COMPARISON: [facility] Outside Film, RG, KNEE 3VW (LT), 09/14/2022, 14:52. FINDINGS: Bones: Patient is status post knee joint arthroplasty. Hardware components are in expected positions. Visualized bony structures are intact. Soft tissues: Overlying postoperative changes are noted. IMPRESSION: Expected post-operative appearance of a knee arthroplasty. Dictated by: Antoni Mccormack Meme Interpreted: Corie Gonzales MD on 03/25/2023 at 16:54 Transcribed by: TAMAR on 03/25/2023 at 16:55 Approved by: Corie Gonzales M.D. on 04/04/2023 at 17:32
[2023-03-25] MEDS: SODIUM CHLORIDE IRRIG SOLUTION 250 ML, POVIDONE-IODINE SPONGE STICKS 1 APPLIC IRR (15:25)
[2023-03-25] MEDS: LACTATED RINGERS 1,000 ML 42 ML IV (15:27)
[2023-03-25] MEDS: ONDANSETRON 4 MG/2 ML INJ IV (16:53)
[2023-03-25] MEDS: hydrOXYzine 50 MG/ML INJ 25 MG IM (17:16)
[2023-03-25] MEDS: OXYCODONE IR 5 MG TABLET PO ×2 (17:23→21:20)
[2023-03-25] MEDS: diphenhydrAMINE 50 MG/ML VIAL 12.5 MG IV (17:28)
--- NOTE | 2023-03-25 17:52 | PC.NURSE ---
Day shift: In room from PACU at approx 1750. A&Ox4. Does c/o nausea. Also left knee pain. Medicated in PACU w/ 5mg PO Oxycodone. Will wait on more pain meds for now. Oriented to room and call light. Bed alarm is on. Will also be high fall risk for now. Daughter in room for support and she plans to stay the night in the room. 2L NC 97%. PPP and CMS ok. Able to move foot and toes bilat. SCD's in place. VS OK. BP 170/50.
[2023-03-25] MEDS: LACTATED RINGERS 1,000 ML 100 ML IV (18:26)
[2023-03-25] MEDS: DOCUSATE 100 MG CAPSULE PO (21:19)
[2023-03-25] MEDS: ACETAMINOPHEN 325 MG TABLET 650 MG PO (21:20)
[2023-03-25] MEDS: METOPROLOL IR 50 MG TABLET PO (21:21)
[2023-03-26] MEDS: OXYCODONE IR 5 MG TABLET PO ×3 (00:32→11:54)
[2023-03-26] MEDS: IBUPROFEN 400 MG TABLET PO ×3 (00:33→08:42)
[2023-03-26 01:20] VITALS: BP 134/51; PULSE 63; RESP 18; TEMP 36.4; O2SAT 98
[2023-03-26 04:39] VITALS: BP 127/51; PULSE 63; RESP 16; TEMP 36.6; O2SAT 99
[2023-03-26] MEDS: PANTOPRAZOLE DR 20 MG TABLET PO (05:17)
[2023-03-26] MEDS: CEFAZOLIN 2 GM/100 ML PREMIX 100 ML IV (05:17)
[2023-03-26 06:30] LABS: Hematocrit 34.2 % (36-46); Hemoglobin 11.5 g/dL (12.0-16.0)
--- NOTE | 2023-03-26 06:42 | PC.NURSE ---
Patient A&Ox4, c/o pain to boyd legs adequately controlled with Tylenol, Ibuprofen, and Oxycodone. Patient unable to lift left leg off of bed. Up to [facility] pivot with FWW, gaitbelt, and assist of 2. Patient unable to empty bladder. Voided 75cc at 0545, bladder scan showed 441. Patient straight cathed with return of 425cc of clear, yellow urine.
[2023-03-26] MEDS: ACETAMINOPHEN 325 MG TABLET 650 MG PO ×3 (08:41→21:39)
[2023-03-26] MEDS: LORATADINE 10 MG TABLET PO (08:41)
[2023-03-26] MEDS: METOPROLOL IR 50 MG TABLET PO ×2 (08:42→21:39)
[2023-03-26] MEDS: DOCUSATE 100 MG CAPSULE PO ×2 (08:42→21:39)
[2023-03-26] MEDS: ASPIRIN EC 81 MG TABLET PO ×2 (08:42→21:39)
[2023-03-26] MEDS: FUROSEMIDE 40 MG TABLET PO (08:53)
--- NOTE | 2023-03-26 09:10 | PT.IIE ---
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) Hx laparoscopic cholecystectomy (2020) Hx of colonoscopy (2005) Hx of tonsillectomy Status post bilateral cataract extraction Status post biopsy of kidney Medical History (Last Updated 03/15/23 @ 10:10 by Lexii Aquino, RN) Anesthesia complication Arthritis Easy bruisability GERD (gastroesophageal reflux disease) Glaucoma HTN (hypertension) Hyperglycemia, drug-induced Kidney failure Pre-diabetes Physical Therapy Inpatient Evaluation/Re-Eval M1 PT/OT-IP Prior Functional Status Start: 03/26/23 12:11 Freq: NEEDED Status: Active Protocol: Document 03/26/23 09:10 AB (Rec: 03/26/23 12:32 AB [id number]) Medical Review Prior Functional Status Medical History Reviewed Yes Communication agreeable to do PT Mobility and Gait pt stated that she was independent with all mobilities and ambulation without AD Social History Household Members spouse Living Arrangements House Number of Floors (Floors) Two Floors Number of Stairs To Enter/Railing? pt stays on main level of the house 3 steps L rail ascending to enter the house Home Environment High Toilet,Walk in Shower Home Equipment Front Wheel Walker,Four Wheel Walker,Straight Cane,Hand Held Shower,Grab Bars Near Toilet Additional Social History Comment daughter will be staying for a few days to assist pt at home pt has a recliner at home that she plans to sleep on for now M2 PT-IP Current Condition Start: 03/26/23 12:11 Freq: NEEDED Status: Active Protocol: Document 03/26/23 09:10 AB (Rec: 03/26/23 12:32 AB [id number]) Physical Therapy Current Condition Current Condition Evaluation Date 03/26/23 Treatment Diagnosis s/p L TKA; difficulty in walking Onset Date 03/25/23 M3 PT-IP Subjective Start: 03/26/23 12:11 Freq: NEEDED Status: Active Protocol: Document 03/26/23 09:10 AB (Rec: 03/26/23 12:32 AB [email or web address]) Subjective Physical Therapy Visit Type Type Initial Evaluation Visit Start Time 09:10 Visit Stop Time 10:25 Total Visit Minutes 75 Number of BLUEPRINTING MACHINE OPERATOR Visits 0 Physical Therapy Visit Comments Patient Comments agreeable to do PT Therapy Pain Assessment Pain When Pain Assessed At Rest Pain Present Pain Present Pain Reported Location Left Knee Intensity 2 Scale Used increases to 8/10 with mobility Pain Behaviors Facial Grimacing,Guarding, Holding Area Pain Management Techniques Apply Cold,Distraction, Modification of Treatment,Re- positioning,Timing of Activity with Medications M4 PT-IP Mobility and Gait Start: 03/26/23 12:11 Freq: NEEDED Status: Active Protocol: Document 03/26/23 09:10 AB (Rec: 03/26/23 12:32 AB [id number]) PT-Bed Mobility Assessment Supine to Sit Supine to Sit Standby Assistance,Head of Bed Elevated,Bedrails PT-Transfer Assessment Sit to and From Stand Sit to and from Stand Maximum Assistance,1 Person Assistance,Use of Upper Extremities Equipment Transfer Assistive Device Gait Belt,Front Wheeled Walker Orthotic/Prosthetic Devices or Brace: No Transfers Transfer Destination Bedside Commode Transfer Technique Stand Step Pivot Transfer Ability Level of Assist Moderate Assistance,Maximum Assistance,1 Person Assistance ,Use of Upper Extremities Comments Mobility Comments pt supine in bed. BP in supine: 117/52. pt's daughter in room with pt. obtained PLOF and home set up. post-op folder provided and reviewed contents. educated on HEP. completed heel slides prior to mobility. pt with increase L knee guarding with mobility. pt completed supine to sit SBA and cues for techniques. HOB elevated and pt used bed rail. pt plans to sleep on her recliner at home. pt able to sit on EOB SBA. c/o increase L knee pain. BP in sittin/43. pt sat on EOB for ~ 2 more minutes and BP checked again: 122/45. pt requesting to use the toilet. completed sit to stand max A and step transfer to bedside commode max A and max cues using FWW. pt completed sit to stand from the commode max A and step transfer to chair using FWW mod to max A and max cues. pt refused ambulation but agreed to stay up on the chair. completed heel slides in sitting and quads set and educated pt of importance of knee movement. positioned pt on the chair. call light and table placed within reach. caregiver training set up ~ 1pm today. Gait Assessment Comments Gait Comments unable at this time but was able to take a few steps to transfer using FWW PT-Balance Assessment Sitting Balance and Reactions Static Sitting Balance Ability Good Dynamic Sitting Balance Ability Good Standing Balance and Reactions Static Standing Balance Ability Poor Dynamic Standing Balance Ability Poor Device Used FWW M5 PT-IP Objective Assessments Start: 03/26/23 12:11 Freq: NEEDED Status: Active Protocol: Document 03/26/23 09:10 AB (Rec: 03/26/23 12:32 AB [id number]) Orientation Orientation/Cognition Level of Alertness Alert Orientation Name,Place,Situation Language Function Ability No Deficits Noted Safety Awareness Decreased Safety Awareness Memory Description No Deficits Noted Gross Range of Motion Lower Extremity ROM Assessment Left Impaired Impairments L knee 10 - 30 deg Strength Lower Extremity Strength Assessment Left Impaired Hip 4/5 Knee 3+/5 Sensation Assessment Sensation Gross Sensation WNL Muscle Tone Muscle Tone WNL Yes M6 PT-IP Treatment Start: 03/26/23 12:11 Freq: NEEDED Status: Active Protocol: Document 03/26/23 09:10 AB (Rec: 03/26/23 12:32 AB [id number]) Physical Therapy Treatment Exercises Exercises Quad Sets,Heel Slides Education Education Provided Precautions,Weight Bearing Status,Post-Op Packet,Safety M7 PT-IP Assessment and Plan Start: 03/26/23 12:11 Freq: NEEDED Status: Active Protocol: Document 03/26/23 09:10 AB (Rec: 03/26/23 12:32 AB [id number]) PT Summary Assessment and Plan Potential Rehabilitation Potential Fair Status of Condition at Evaluation Evolving Summary Impairments Pain,ROM,Strength,Balance, Coordination,Sensation,Tone, Cognition,Bed Mobility, Transfers,Gait,Activity Tolerance Assessment Summary pt is an 82 y/o F s/p L TKA POD 1. pt is WBAT on LLE. pt with increase guarding and tightness on L knee with c/o increase kne pain with movement and weight bearing. pt requiring max A with mobility using fWW and unable to ambulate at this time. will continue to assess progress but pt plans to go home with spouse/daughter to assist her. caregiver training will be conducted when appropriate. stair climbing training also needs to be completed prior to d/c as pt has 3 steps to enter the house with L rail ascending. will continue to assess. Goals Bed Mobility Goal Independent Transfer Goal Standby Assistance,Front Wheeled Walker Gait Goal Standby Assistance,Front Wheel Walker Gait Distance 150 Other Goals improve transfers and ambulation ~ 250 ft using LRAD SBA up/down 3 steps L rail + SPC/ CASKET LINER CGA Days to Meet Goals 5 Frequency of Treatment Frequency Of Treatment Twice a Day Treatment Plan Physical Therapy Treatment Plan Bed Mobility Training,Transfer Training,Gait Training, Therapeutic Exercise,Balance Retraining,Post Op Education, Discharge Planning,Hot or Cold Pack,Neuromuscular Re-ed, Coordination Retraining,Manual Therapy Weight Bearing Status Weight Bearing Status Weight Bear as Tolerated Allowed Weight Bearing Amount (enter % LLE WBAT or #) (%) Recommendations To Nursing Amount of Assist Needed 1 Person Assist Discharge Recommendations PT Discharge Recommendations Home with 11/10 Assist Available,Home Health,SNF Rehab,Home vs SNF Transportation Needs at Discharge Private Vehicle,Wheelchair/ Cabulance
--- NOTE | 2023-03-26 11:09 | PM.PNPO.1 ---
Subjective Subjective Date Patient Seen: 03/26/23 Time Patient Seen: 09:00 Interval history: Patient is found sitting up in bed with family member at bedside. She has pain along the incision site. Denies any nausea vomiting fever or chills. She does not feel she is able to go home today. She has 5 steps at home. Exam Vital Signs (past 8 hours): - 03/26/23 04:39 Temperature 97.8 F Pulse Rate 63 Respiratory Rate 16 Blood Pressure 127/51 L Pulse Oximetry 99 Oxygen Flow Rate 0 Oxygen Delivery Method Nasal Cannula Oxygen Flow Rate 0 Narrative Exam Narrative: Shalom dressing intact no signs of drainage. Flexion is limited to 30?. Able to dorsiflex and plantar flex against resistance the left ankle. Sensation is grossly intact bilaterally. Const General: cooperative and healthy appearing Resp Effort & Inspection: normal respiratory effort and able to speak in complete sentences Objective Labs 03/26/23 05:55 Labs: Laboratory Results - last 24 hr 03/25/23 03/26/23 10:50 05:55 WBC 9.6 RBC 4.33 Hgb 13.4 11.5 L Hct 40.0 34.2 L MCV 92.2 MCH 31.0 MCHC 33.6 RDW 13.4 Plt Count 267 Neut % (Auto) 60.2 Lymph % (Auto) 28.0 Norman % (Auto) 7.5 Eos % (Auto) 3.6 Baso % (Auto) 0.7 Neut # (Auto) 5800 Lymph # (Auto) 2700 Norman # (Auto) 700 Eos # (Auto) 300 Baso # (Auto) 100 Blood Type A Positive Antibody Screen Negative COUNT INCLUDES [facility] Medical History (Updated 03/15/23 @ 10:10 by Lexii Aquino RN) Anesthesia complication Pre-diabetes HTN (hypertension) Easy bruisability Arthritis Hyperglycemia, drug-induced Kidney failure GERD (gastroesophageal reflux disease) Glaucoma Surgical History (Updated 03/15/23 @ 09:55 by Lexii Aquino RN) Hx laparoscopic cholecystectomy (2020) History of cryosurgery (1979) History of lumpectomy of right breast Hx of colonoscopy (2005) 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 Continue to work with physical therapy. Spoke with physical therapist, she feels require at least 2 more sessions of physical therapy before discharge recommendation Expected discharge in 1-2 nights depending on progress goes with physical therapy. Time Spent With Patient Time with patient: less than 15 minutes Quality VTE Deep Vein Thrombosis/Pulmonary Embolism Present on Admission: No
--- NOTE | 2023-03-26 13:10 | CM.DANOTE ---
Addendum entered by LAMINE Pearson 03/26/23 15:42: ADD: Per PT, completed CG training but pt too fatigued to complete stairs today and requests to attempt stairs tomorrow and scheduled for 0900 with family to be present and currently recommending home with assist and HH. SW met bedside with pt and discussed HH recommendation and HH services and frequency and pt denies any hx of HH but states she would prefer to have her spouse transport her to outpt PT appointments as she already has an established outpt PT that she feels knows her well and likes his approach. Plan: SW to follow after stair training in the AM at 0900 to confirm safe d/c home and no HH needs. BF Original Note: Patient is an 82 yo female who was admitted [facility] on 03/25/23 for LTKA. Pt has M[place] and [place] for [place] and her PCP is Gerald Prince. EMR was reviewed. Per Ortho MD, pt tolerated procedure well and to work more with PT as pt was having some orthostatics and not yet stable for discharge today. Per PT, pt was limited due to lack of leg flexion and pain issues and will attempt CG training around 1300 today with Dtr bedside to confirm if pt safe for d/c home with family assist. SW met briefly bedside with pt and Dtr and explained role and they confirm that pt lives in [place] with her and is mostly independent with ADLs at baseline. Pt has outpt PT already set up and Dtr confirms that she is here to stay with pt and spouse and assist as needed for the next week. Pt and family are hopeful for d/c home when medically stable and Dtr confirms she will remain bedside for CG training today to confirm pt safe for d/c home. Plan: SW to follow closely for PT CG training this afternoon with family bedside to confirm if home with assist is a safe option and outpt vs HH. LAMINE Pearson Discharge Planning/Care Management Advanced directive, confirm from FAMILY Start: 03/25/23 18:03 Freq: Q24H Status: Active Protocol: Document 03/25/23 18:33 YAD (Rec: 03/25/23 18:39 YAD [id number]) Advance Directive, confirm on record Time 18:36 Person contacted patient Copy received No CM Discharge Assessment Start: 03/26/23 13:07 Freq: Status: Active Protocol: Document 03/26/23 13:07 BF (Rec: 03/26/23 13:10 BF [id number]) Discharge Planning Assessment Assigned Manager Health LAMINE Avendano DPOA/Assigned Designee Name spouse and Dtr Advance Directives? Yes Advance Directives on File No History Provided By Patient,Family Member,Medical Record Has Patient been admitted in last 30 No days? Prior Living Arrangements House Household Members spouse Type of transporation used prior to Relies on Others admit Independent with ADL's Yes Is patient alert and oriented? Yes Needs Assistance With Managing Medications,Home Chores / Shopping Caregiver for Another No Community Services used prior to Physical Therapy admission: DME Already Rented / Owned FWW / Walker,Cane Patient/Family Preference Home with Home Health,OP PT Therapy Comment outpt vs HH PT pending CG training at 1300 today Barriers to Discharge No Discharge Plan Home with Home Health Transportation Arrangement Dtr bedside and can transport at d/c Additional Comment Pending further PT this afternoon and recommendations Whiteboard Updated in Patient Room with Yes name and ext. # of Manager Health Review Status In Process Please Provide Date Initial DC 03/26/23 Assessment Was Performed Next Review Type Continued Stay Review Pre-Anesthesia Assessment Start: 03/15/23 09:51 Freq: Status: Complete Protocol: Document 03/15/23 09:51 KENDELL (Rec: 03/15/23 10:26 CAB [id number]) Pre-Anesthesia Assessment Preferred Name Pat Patient Information Reviewed Via Phone Assessment Assessment Completed With Patient Diagnostic Results BMP/CMP,CBC,EKG Comment Outside labs/EKG scanned Primary Care Provider Rocío Bloom Comment PCP visit 09/09/22 scanned Seen Specialist in Last 12 Months Yes Specialist Seen Police Officer,Orthopedist Comment Nephrology visit 10/2022 scanned Primary Language Cuban Preferred Language Cuban Gun Tester Required No Height 162.56 cm Weight 101.605 kg Body Mass Index (BMI) 38.4 Hearing Ability Normal Visual Assist Magnifying Glass Dentition Type Teeth, Natural Present Barriers to Learning None Hx Anesthesia Reactions Yes: PONV Hx Family Anesthesia Reaction No Hx Malignant Hyperthermia No Hx Blood Transfusions No Anesthesia Review Requested No Puffer Tender No alcohol intake never Smoking Status Never smoker Substance Use Type does not use Pain Present Pain Reported Musculoskeletal Symptoms Abnormal Gait,Difficulty Walking,Joint Pain History of Falling (Recent or History of No ) Patient is completely paralyzed or No completely immobile Mental Status Oriented to own ability Is patient on oxygen? No Does patient have GALICIA/SOB No Hx Sleep Apnea No Suspected Sleep Apnea No Currently Taking a Beta Luca Yes: Metoprolol Can You Climb a Flight of Stairs Without Yes SOB Hx Chest Pain No Hx SOB No Hx Syncope or Dizziness No Anti-Coagulant Therapy No Has a Compliance Reviewer No Cardiac Testing No Hx Pacemaker/ICD No Pacemaker Rep Required? No Cardiac Clearance Received Not Applicable Diet Type At Home Regular Dysphagia No Gastrointestinal Symptoms Reflux Bladder Pattern Incontinent, Stress Urinary Catheter Present No Hx Urinary Self Catheterization No Diabetes No: Pre-diabetes HgbA1C 6.0 Date 09/06/22 Patient No Lactating No Hx Drug Resistant Organism No Presence of External or Internal Medical Yes: Right knee prosthesis Devices Received a COVID vaccine? No Marital Status Lives With spouse Current Living Arrangements House Number of Floors (Floors) Two Floors Number of Stairs To Enter/Railing? 3 stairs, railing present Support System Child/Children,Spouse Does the Patient Have Assistance After Yes Surgery Patient Discharge Plan Description Return Home Comment Pt not advised on length of stay per surgeon Feels Safe in Current Environment Yes Been Physically Hurt or Threatened By a No Person in Current Environment Do you have thoughts of harming yourself None or others? Are you currently considering suicide? No Do you have a plan to hurt yourself or No Plan others? Do You Have Any Spiritual Beliefs That No May Affect Your HC Choices? Do You Have Any Cultural Practices That No May Affect Your HC Choices? Who Can We Speak to About Patient's Care Family, friends Identifying Code for Release of Patient Declines to issue Information Health Care Proxy/Next of Kin Robb () Health Care Proxy Phone Number Robb: [phone] cell: Emergency Contact Name Robb () Emergency Contact Phone Number Robb: [phone] cell: Advance Directives? Yes Advance Directives on File No Requested Patient Bring Advanced Yes Directives DOS Power of Check Examiner Yes Power of Check Examiner Name Robb () Power of Check Examiner Phone Number Robb: [phone] cell:[phone] PAC Instructions Do not shave/clip surgical site,Durable medical equipment ,Medications to take/avoid, Nasal antibiotic,No ETOH/ petroleum product on skin DOS, NPO,Post-op transportation,Pre -surgical wash,Sensory aids, Sturdy shoes/comfortable clothes,Do not bring valuables and remove jewelry
--- NOTE | 2023-03-26 13:15 | PT.IPTN ---
Current Diagnoses Unilateral primary osteoarthritis, left knee (03/25/23) Surgery Performed Operation Date: 03/25/23 12:30 Actual Procedures p Total Knee Arthroplasty(Left) - Kay Payne MD Physical Therapy Treatment Note M2 PT-IP Current Condition Start: 03/26/23 12:11 Freq: NEEDED Status: Active Protocol: Document 03/26/23 09:10 AB (Rec: 03/26/23 12:32 AB [id number]) Physical Therapy Current Condition Current Condition Evaluation Date 03/26/23 Treatment Diagnosis s/p L TKA; difficulty in walking Onset Date 03/25/23 M3 PT-IP Subjective Start: 03/26/23 12:11 Freq: NEEDED Status: Active Protocol: Document 03/26/23 13:15 AB (Rec: 03/26/23 14:56 AB [id number]) Subjective Physical Therapy Visit Type Type Treatment Note Visit Start Time 13:15 Visit Stop Time 13:54 Total Visit Minutes 39 Number of CARD READER Visits 0 Physical Therapy Visit Comments Patient Comments agreeable to do PT Therapy Pain Assessment Pain When Pain Assessed At Rest Pain Present Pain Present Pain Reported Location Left Knee Intensity 2 Scale Used Numeric (0 - 10) Pain Management Techniques Apply Cold,Distraction, Modification of Treatment,Re- positioning,Timing of Activity with Medications M4 PT-IP Mobility and Gait Start: 03/26/23 12:11 Freq: NEEDED Status: Active Protocol: Document 03/26/23 13:15 AB (Rec: 03/26/23 14:56 AB [id number]) PT-Bed Mobility Assessment Supine to Sit Supine to Sit Standby Assistance Sit to Supine Sit to Supine Moderate Assistance PT-Transfer Assessment Sit to and From Stand Sit to and from Stand Minimal Assistance,1 Person Assistance,Use of Upper Extremities Equipment Transfer Assistive Device Gait Belt,Front Wheeled Walker Orthotic/Prosthetic Devices or Brace: No Transfers Transfer Destination Chair Transfer Technique ambulated Transfer Ability Level of Assist Contact Guard Assistance, Minimal Assistance,1 Person Assistance,Use of Upper Extremities Comments Mobility Comments pt supine in bed. daughter in room and agreeable for caregiver training. pt completed supine to sit SBA with HOB elevated and pt used bed rail. pt plans to sleep on her recliner at home. mod A for scooting to EOB and educated on techniques and able to scoot min A the rest of the way to EOB. pt completed sit to stand min A and cues. instructed to sit back down. educated on sit<> stand techniques. pt completed sit<>stand again x 2 reps CGA to min A and cues. pt ambulated in room using FWW ~ 20 ft CGA to min A and cues for safety. pt sat on the chair. caregiver training conducted. educated daughter regarding use of safety belt and how to assist pt. daughter was able to put safety belt on pt and assisted pt with sit to stand ambulation in room using FWW ~ 15 ft. pt continues to require heavy UE use on FWW for support during ambulation. pt sat on EOB. pt stated that she wants to do stair climbing tomorrow but agreed for PT to assess LLE stability for stairs. pt completed single leg stand on LLE with 5 sec hold min to mod A and use FWW with BUE. completed single leg stance again on LLE mod A with just LUE support on FWW with 5 sec hold x 2 reps. pt requested to lie back in bed. completed sit to supine mod A for LLE elevation to the bed. positioned pt on the bed . call light and table placed within reach. Gait Assessment Gait Gait Assistance Required: Contact Guard Assist,Minimum Assistance Distance (Feet) 20 Able to Maintain Weight Bearing Status Yes During Gait Assistive Devices Assistive Device Gait Belt,Front Wheeled Walker Orthotic/Prosthetic Devices or Brace: No Gait Deviations General Gait Pattern Antalgic,Decreased Stride Length,Decreased Feet Clearance,Step-to Gait Factors Limiting Gait Function Factors Limiting Gait Function Decreased Activity Tolerance, Decreased Strength,Limited Range of Motion,Pain,Poor Balance,Poor Safety Awareness M5 PT-IP Objective Assessments Start: 03/26/23 12:11 Freq: NEEDED Status: Active Protocol: Document 03/26/23 09:10 AB (Rec: 03/26/23 12:32 AB [email or web address]) Orientation Orientation/Cognition Level of Alertness Alert Orientation Name,Place,Situation Language Function Ability No Deficits Noted Safety Awareness Decreased Safety Awareness Memory Description No Deficits Noted Gross Range of Motion Lower Extremity ROM Assessment Left Impaired Impairments L knee 10 - 30 deg Strength Lower Extremity Strength Assessment Left Impaired Hip 4/5 Knee 3+/5 Sensation Assessment Sensation Gross Sensation WNL Muscle Tone Muscle Tone WNL Yes M6 PT-IP Treatment Start: 03/26/23 12:11 Freq: NEEDED Status: Active Protocol: Document 03/26/23 13:15 AB (Rec: 03/26/23 14:56 AB [email or web address]) Physical Therapy Treatment Education Education Provided Safety M7 PT-IP Assessment and Plan Start: 03/26/23 12:11 Freq: NEEDED Status: Active Protocol: Document 03/26/23 13:15 AB (Rec: 03/26/23 14:56 AB [email or web address]) PT Summary Assessment and Plan Potential Rehabilitation Potential Fair Summary Impairments Pain,ROM,Strength,Balance,Tone ,Cognition,Bed Mobility, Transfers,Gait,Activity Tolerance Progress Towards Goals Slow Progress due to Pain,Slow Progress due to Activity Tolerance Assessment Summary pt progressing slowly with mobility and able to ambulate this afternoon using FWW CGA to min A ~ 20 ft. Caregiver training initiated and daughter was able to assist pt with bed mobility, transfer and ambulation. Stair climbing training still needs to be completed. Caregiver training set up again for tomorrow at 9am. Goals Bed Mobility Goal Independent Transfer Goal Standby Assistance,Front Wheeled Walker Gait Goal Standby Assistance,Front Wheel Walker Gait Distance 150 Other Goals improve transfers and ambulation ~ 250 ft using LRAD SBA up/down 3 steps L rail + SPC/ WIRE FENCE BUILDER CGA Days to Meet Goals 5 Frequency of Treatment Frequency Of Treatment Twice a Day Treatment Plan Physical Therapy Treatment Plan Bed Mobility Training,Transfer Training,Gait Training, Therapeutic Exercise,Balance Retraining,Post Op Education, Discharge Planning,Hot or Cold Pack,Neuromuscular Re-ed, Coordination Retraining,Manual Therapy Weight Bearing Status Weight Bearing Status Weight Bear as Tolerated Allowed Weight Bearing Amount (enter % LLE WBAT or #) (%) Recommendations To Nursing Amount of Assist Needed 1 Person Assist Discharge Recommendations PT Discharge Recommendations Home with 11/10 Assist Available,Home Health,SNF Rehab,Home vs SNF Transportation Needs at Discharge Private Vehicle,Wheelchair/ Cabulance
[2023-03-26 17:46] VITALS: O2SAT 91
[2023-03-26 20:16] VITALS: BP 132/44; PULSE 63; RESP 17; TEMP 36.2; O2SAT 96
[2023-03-27 03:26] VITALS: BP 144/48; PULSE 73; RESP 16; TEMP 36.4; O2SAT 93
[2023-03-27] MEDS: ACETAMINOPHEN 325 MG TABLET 650 MG PO (04:04)
[2023-03-27] MEDS: OXYCODONE IR 5 MG TABLET PO ×3 (04:04→12:42)
[2023-03-27] MEDS: IBUPROFEN 400 MG TABLET PO (04:04)
[2023-03-27 08:17] VITALS: BP 135/45; PULSE 64; RESP 18; TEMP 35.9; O2SAT 95
[2023-03-27] MEDS: DOCUSATE 100 MG CAPSULE PO (08:28)
[2023-03-27] MEDS: AMLODIPINE 5 MG TABLET PO (08:29)
[2023-03-27] MEDS: FUROSEMIDE 40 MG TABLET PO (08:29)
[2023-03-27] MEDS: METOPROLOL IR 50 MG TABLET PO (08:29)
[2023-03-27] MEDS: ASPIRIN EC 81 MG TABLET PO (08:29)
--- NOTE | 2023-03-27 10:38 | PT.IPTN ---
Current Diagnoses Unilateral primary osteoarthritis, left knee (03/25/23) Surgery Performed Operation Date: 03/25/23 12:30 Actual Procedures p Total Knee Arthroplasty(Left) - Kay Payne MD Physical Therapy Treatment Note M2 PT-IP Current Condition Start: 03/26/23 12:11 Freq: NEEDED Status: Active Protocol: Document 03/26/23 09:10 AB (Rec: 03/26/23 12:32 AB [email or web address]) Physical Therapy Current Condition Current Condition Evaluation Date 03/26/23 Treatment Diagnosis s/p L TKA; difficulty in walking Onset Date 03/25/23 M3 PT-IP Subjective Start: 03/26/23 12:11 Freq: NEEDED Status: Active Protocol: Document 03/27/23 09:15 MB (Rec: 03/27/23 10:38 MB [id number]) Subjective Physical Therapy Visit Type Type Treatment Note Visit Start Time 09:15 Visit Stop Time 09:53 Total Visit Minutes 38 Number of SCRAP PILER Visits 0 Physical Therapy Visit Comments Patient Comments Pt is agreeable to PT. Daughter states that pt has had a rough night and she does not know if she can manage her at home. Therapy Pain Assessment Pain When Pain Assessed At Rest Pain Present Pain Present Pain Reported Location Left Knee Intensity 4 Scale Used Numeric (0 - 10) Pain Management Techniques Apply Cold,Distraction, Modification of Treatment,Re- positioning,Timing of Activity with Medications M4 PT-IP Mobility and Gait Start: 03/26/23 12:11 Freq: NEEDED Status: Active Protocol: Document 03/27/23 09:15 MB (Rec: 03/27/23 10:38 MB [id number]) PT-Bed Mobility Assessment Supine to Sit Supine to Sit Standby Assistance,Head of Bed Elevated,Bedrails Scooting Scooting to Edge of Bed Standby Assistance PT-Transfer Assessment Sit to and From Stand Sit to and from Stand Contact Guard Assistance,1 Person Assistance,Use of Upper Extremities Equipment Transfer Assistive Device Gait Belt,Front Wheeled Walker Orthotic/Prosthetic Devices or Brace: No Transfers Transfer Destination Bedside Commode Transfer Technique Stepping Transfer Ability Level of Assist Contact Guard Assistance,1 Person Assistance,Use of Upper Extremities Comments Mobility Comments PT places gait belt around pt 's LLE so that she can scoot her left leg to the right to the EOB without physical assistance. Bed mobility requires a lot of time and encouragement but she can do it. She will sleep in recliner at home. Max A to doff brief and don a clean one. PT assists with wiping after urination. Gait Assessment Gait Gait Assistance Required: Standby Assistance,1 Person Assist Distance (Feet) 100 Able to Maintain Weight Bearing Status Yes During Gait Assistive Devices Assistive Device Gait Belt,Front Wheeled Walker Orthotic/Prosthetic Devices or Brace: No Factors Limiting Gait Function Factors Limiting Gait Function Decreased Activity Tolerance, Decreased Strength,Limited Range of Motion,Pain,Poor Balance,Poor Safety Awareness Comments Gait Comments Pt gait trains a few steps from bed to BSC, 5' from w/c to steps and then 100' back to the room with RW, cues for step pattern and SBA. Pt denies light-headedness and dizziness with being up and gait. Her gait is slow. Stair Climbing Assessment Evaluation Level of Assist On Stairs Contact Guard Assistance,1 Person Assistance Devices Stair Climbing Assistive Devices Left Railing Technique/Endurance Stair Climbing Direction Ascend and Descend Stair Climbing Technique Step to Step Number of Steps Climbed 3 Stair Climbing Set # Repetitions (reps) 1 Comments Stair Climbing Comments Both hands on left rail and pt facing the rail and she is able to ascend and descend with step-to pattern, right foot first ascend and left foot first descend with CGA. PT-Balance Assessment Sitting Balance and Reactions Static Sitting Balance Ability Good Dynamic Sitting Balance Ability Good Standing Balance and Reactions Static Standing Balance Ability Good Dynamic Standing Balance Ability Good Device Used RW M5 PT-IP Objective Assessments Start: 03/26/23 12:11 Freq: NEEDED Status: Active Protocol: Document 03/26/23 09:10 AB (Rec: 03/26/23 12:32 AB [email or web address]) Orientation Orientation/Cognition Level of Alertness Alert Orientation Name,Place,Situation Language Function Ability No Deficits Noted Safety Awareness Decreased Safety Awareness Memory Description No Deficits Noted Gross Range of Motion Lower Extremity ROM Assessment Left Impaired Impairments L knee 10 - 30 deg Strength Lower Extremity Strength Assessment Left Impaired Hip 4/5 Knee 3+/5 Sensation Assessment Sensation Gross Sensation WNL Muscle Tone Muscle Tone WNL Yes M6 PT-IP Treatment Start: 03/26/23 12:11 Freq: NEEDED Status: Active Protocol: Document 03/27/23 09:15 MB (Rec: 01/07/24 10:38 MB [id number]) Physical Therapy Treatment Exercises Exercises Ankle Pumps Education Education Provided Precautions,Weight Bearing Status,Post-Op Packet,Safety Other Treatments Other Treatment Performed PT ed pt on all post-op LE exercises, stair and transfer training, gait training, answering questions of pt and family. They do not have a lot of questions. M7 PT-IP Assessment and Plan Start: 03/26/23 12:11 Freq: NEEDED Status: Active Protocol: Document 03/27/23 09:15 MB (Rec: 03/27/23 10:38 MB [id number]) PT Summary Assessment and Plan Potential Rehabilitation Potential Good Summary Impairments Pain,ROM,Strength,Balance,Tone ,Cognition,Bed Mobility, Transfers,Gait,Activity Tolerance Progress Towards Goals Progressing Toward Goals Assessment Summary Pt's AAROM left knee is 10-60 deg today with dangling of left LE EOB for flexion. Daughter is initially concerned about assisting pt at home and pt's arrives at end of treatment. When PT asks daughter, pt and what other concerns they have, daughter states that she is going to keep her mouth shut. There is a family dynamic that PT is not able to determine. PT ed pt and family that she is doing a lot better, that PT worked through bed mobility, transfer , exercise, step and gait training with them and that is the acute PT goal. She is currently SBA to CGA level for mobility and more assistance for ADLs. She may just be a patient that needs more assistance for ADLs at d/c. They states that OPPT is set- up in [place]. may be a better option for pt to begin with. Goals Bed Mobility Goal Independent Transfer Goal Independent,Front Wheeled Walker Gait Goal Independent,Front Wheel Walker Gait Distance 150 Other Goals improve transfers and ambulation ~ 250 ft using LRAD SBA up/down 3 steps L rail + SPC/ RESEARCH PHYSICIAN CGA Days to Meet Goals 5 Frequency of Treatment Frequency Of Treatment Twice a Day Treatment Plan Physical Therapy Treatment Plan Bed Mobility Training,Transfer Training,Gait Training, Therapeutic Exercise,Balance Retraining,Post Op Education, Discharge Planning,Hot or Cold Pack,Neuromuscular Re-ed, Coordination Retraining,Manual Therapy Weight Bearing Status Weight Bearing Status Weight Bear as Tolerated Allowed Weight Bearing Amount (enter % LLE WBAT or #) (%) Recommendations To Nursing Amount of Assist Needed 1 Person Assist Discharge Recommendations PT Discharge Recommendations Home with 11/10 Assist Available,Home Health Transportation Needs at Discharge Private Vehicle,Wheelchair/ Cabulance
--- NOTE | 2023-03-27 12:08 | CM.DPC ---
DCP Home planning Per PT, pt was able to complete stairs today with Dtr present and Dtr expressing some concerns with assisting pt at home. SARAH met bedside with pt, spouse, and Dtr and discussed likely d/c today as pt auth'd as SDC for surgery and they acknowledge understanding. SW discussed HH services and frequency again vs outpt PT and Dtr in agreement with HH and states she will be staying this week with pt and spouse but then has to go back to her home. Spouse states he used HH after his own TKA and felt HH was worthless and felt outpt PT was much more beneficial. Pt in agreement. SW discussed if pt gets home and they change their mind about wanting HH, just to call [facility] to request HH and they acknowledged understanding. SARAH updated RN. Plan: SARAH to follow for Ortho to round towards plan of discharge home today with spouse and Dtr assist and outpt PT already set up for next week. Romana Malave MSW
--- NOTE | 2023-03-27 13:23 | P.DS_ITS ---
History of Present Illness History of Present Illness Chief complaint: Left TKA Narrative: Operative Date/Time/Diagnoses Date of procedure: 03/25/23 Time of procedure: 13:25 Pre-op diagnosis: Severe left knee OA Post-op diagnosis: same Procedure & Clinicians Procedure: Left total knee arthroplasty Same procedure as scheduled: Yes Indications: The patient has had progressively worsening left knee pain with radiographic changes consistent with arthritis. Non-operative management has failed and the patient has requested total knee replacement. The risks, benefits and alternatives to surgery were discussed with the patient prior to proceeding. Risks discussed included, but were not limited to, failure to relieve pain, stiffness, infection, nerve damage, deep venous thrombosis, pulmonary embolism, stroke, coma, heart attack, permanent paralysis and , as well as the potential need for eventual revision of the prosthetic. Surgeon: Kay Payne Auto Transmission Technician: Brayan Julien Anesthesia Type: Peripheral nerve block Operative Notes Findings: Severe left knee osteoarthritis, adequate stability Closure Type: primary Specimen(s): none sent Prosthetic devices, grafts, tissues, transplants, or devices: Payne and nephew fouzianey BCS 2 size 5 femur, size 3 tibia, 35 by 7.5mm patella, polyethylene 9 Estimated Blood Loss (mL): 250 Blood products transfused: none Tourniquet time (min): 79 Discharge Providers Provider Discharge Date: 03/27/23 Primary care physician: Gerald Hines MD Consults: 03/25/23 13:14 Consult to Anesthesiology Routine Comment: Consulting Provider: Anesthesiologist Reason for consultation: Regional block for post operative pain control Has provider been notified: Yes 03/25/23 18:17 Consult to Discharge Planning Routine Comment: Consult to Occupational Therapy Evaluate & Treat Comment: Physician Instructions: Evaluate and treat Consult to Physical Therapy Evaluate & Treat Comment: Physician Instructions: postop TKA protocol Discharge provider: Mani Jeffries MD Summary Hospital Course Discharge Diagnosis: Status post left total knee arthroplasty Hospital Course: Patient underwent total knee arthroplasty. Postoperative course was uncomplicated. She remained inpatient for a day and mobilized with physical therapy. She had resumption of urinary function and pain was controlled without necessitating IV opioids. Exam Vital Signs (past 8 hours): - 03/27/23 08:17 Temperature 96.7 F L Pulse Rate 64 Respiratory Rate 18 Blood Pressure 135/45 L Pulse Oximetry 95 Oxygen Flow Rate 0 Oxygen Delivery Method Room Air Oxygen Flow Rate 0 Narrative Exam Narrative: Left lower extremity examination: Shalom dressing in place clean dry and intact. Knee flexed to 90? with patient seated in chair at time of my evaluation. Flexes and extends toes and ankle. Foot warm and well perfused with brisk capillary refill. 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) Status post biopsy of kidney Hx of tonsillectomy Status post bilateral cataract extraction Social History household members: spouse Smoking Status: Never smoker alcohol intake: never Discharge Plan Discharge Plan Patient Disposition: Home Discharge orders & Medications Discharge Orders: Discharge (Order); Ordered 03/27/23 Ordered By: Mani Jeffries Prescriptions: Continued amlodipine 5 mg Tablet 5 mg PO DAILY furosemide 40 mg Tablet 40 mg PO DAILY cetirizine [Aller-Tim] 10 mg Tablet 10 mg PO DAILY travoprost [Travatan Z] 0.004 % Drops 1 drp EYE-BOTH BEDTIME metoprolol tartrate 50 mg Tablet 50 mg PO BID omeprazole 20 mg Capsule,Delayed Release(Dr/Ec) 20 mg PO Q OTHER DAY Pharmacist Comment: Home prescription sent previously Follow up/Referrals: Gerald Hines MD [Primary Care Provider] - Diet/Activity/Treatments Diet: Diet as Tolerated Activity: Weightbearing as tolerated. Total knee replacement precautions. Cold/Heat Therapy: Ice to knee as needed for pain. Skin/Wound/Dressing Care Report to your healthcare provider any signs of infection, such as:: chills, fever, night sweats, unusual drainage and unusual redness Dressing: Leave dressing in place until follow up in office. No bathing or otherwise soaking incision. Call the office if the dressing becomes saturated inside. Visit Report/Discharge Packet Instructions: DI for Knee Replacement Stand Alone Forms: Patient Portal/API, Surgery Discharge Discharge Data Primary Care Provider: Gerald Hines Attending Provider: Payne,Kay A Quality VTE Deep Vein Thrombosis/Pulmonary Embolism Present on Admission: No
--- NOTE | 2023-03-27 14:16 | PC.NURSE ---
Discharge note: Patient discharged per MD order, discussed importance of mobility precautions, Rx medications/side effect, signs of worsening symptoms, dressing care, and home safety. Patient and family verbalized understanding of instructions. Rx at home. Home via private vehicle, accompanied by spouse and daughter.
== END 2023-03-27 14:19 | disposition home or self-care (01) ==
LOC: OR 10:32 → AC 10:36
PROVIDERS: Student in an Organized Health Care Education/Training Program; PCP Internal Medicine; Referring Provider Orthopaedic Surgery; Visit Provider Orthopaedic Surgery
PROC: 0SRD0JZ Replacement of Left Knee Joint with Synthetic Substitute, Open Approach (ICD-10-PCS; CPT 27447; principal; 2023-03-25 12:30)
DX: M17.12 Unilateral primary osteoarthritis, left knee (principal); G89.18 Other acute postprocedural pain; M25.762 Osteophyte, left knee
CPT/HCPCS: 27447; 36415; 64450; 73560; 85014; 85018; 85025; 86850; 86900; 86901; 97116; 97162; 97530; C1776; C9290; J0171; J0690; J1100; J1170; J1200; J2250; J2274; J2405; J2704; J3010; J3410